=== PATIENT | female | born 1945 | race Caucasian/White ===

== ENCOUNTER 2018-10-21 14:39 | Inpatient (IN) | payer OTHER | END 2018-10-24 19:00 | disposition home or self-care (01) | LOC: TELE-WESTW 10-23 17:21 → ER 14:39 → TELE 20:24 | DX: R55 Syncope and collapse (principal); G93.40 Encephalopathy, unspecified; N39.0 Urinary tract infection, site not specified; I12.9 Hypertensive chronic kidney disease with stage 1 through stage 4 chronic kidney disease, or unspecified chronic kidney disease; E87.6 Hypokalemia; D64.9 Anemia, unspecified; N63.10 Unspecified lump in the right breast, unspecified quadrant; R41.82 Altered mental status, unspecified; F02.80 Dementia in other diseases classified elsewhere, unspecified severity, without behavioral disturbance, psychotic disturbance, mood disturbance, and anxiety; G30.9 Alzheimer's disease, unspecified; E78.5 Hyperlipidemia, unspecified ==

== ENCOUNTER 2018-11-12 12:49 | Emergency (ER) | payer OTHER ==
[~2018-11-12] VITALS: Ht 160 cm; Wt 81.6 kg
[~2018-11-12 12:49] MED LIST: LOSA100T33 PO; ROSU40TA PO
[2018-11-12 13:01] VITALS: BP 152/54
[2018-11-12 14:00] LABS: Basophils # (auto) 0.1 uL; Basophils % (auto) 0.9 % (0.0-2.0); Eosinophils # (auto) 0.1 uL; Eosinophils % (auto) 1.9 % (0.0-7.0); Hematocrit 31.8 % (36.0-46.0); Hemoglobin 10.5 g/dL (12.2-16.2); Lymphocytes # (auto) 1.6 uL; Lymphocytes % (auto) 20.4 % (10.0-50.0); Mean Corpuscular Hemoglobin 30.3 pg (28.0-32.0); Mean Corpuscular Hgb Conc. 33.1 g/dL (32.0-36.0); Mean Corpuscular Volume 91.5 fL (80.0-100.0); Monocytes # (auto) 0.6 uL; Monocytes % (auto) 8.4 % (0.0-12.0); Neutrophils # (auto) 5.3 uL; Neutrophils % (auto) 68.4 % (37.0-80.0); Platelet Count (auto) 284 10^3/uL (140-450); Red Blood Cells 3.47 10^6/uL (4.0-5.20); Red Cell Distribution Width 14.7 % (11.8-14.3); White Blood Cell 7.7 10^3/uL (4.4-10.8)
[2018-11-12 14:10] LABS: Chloride 107 mmol/L (98-107); Potassium 3.6 mmol/L (3.5-5.1); Sodium 141 mmol/L (136-145)
[2018-11-12 14:13] LABS: Albumin 3.6 g/dL (3.4-5.0); Anion Gap 6 (5-15); Calcium 9.2 mg/dL (8.5-10.1); Carbon Dioxide 28 mmol/L (21-32); Glucose 83 mg/dL (74-106); Magnesium 2.4 mg/dL (1.6-2.6)
[2018-11-12 14:19] LABS: Alanine Aminotransferase 24 U/L (13-56); Alkaline Phosphatase 83 U/L (45-117); Bilirubin, Total 0.3 mg/dL (0.2-1.0); GFR African American 46 mL/min; GFR Non-African American 38 mL/min
[2018-11-12 14:23] LABS: Aspartate Aminotransferase 23 U/L (15-37); BUN/Creatinine Ratio 15.4; Blood Urea Nitrogen 22 mg/dL (7-18)
== END 2018-11-12 15:27 | disposition left against medical advice (07) ==
LOC: ER 12:56
DX: G93.41 Metabolic encephalopathy (principal); F03.90 Unspecified dementia, unspecified severity, without behavioral disturbance, psychotic disturbance, mood disturbance, and anxiety; Z85.3 Personal history of malignant neoplasm of breast
CPT/HCPCS: 36415; 70450; 80053; 83735; 83880; 84484; 85025; 93005

== ENCOUNTER 2018-11-13 08:40 | Emergency (ER) | payer OTHER ==
[~2018-11-13] VITALS: Ht 160 cm; Wt 86.2 kg
[2018-11-13 09:05] LABS: Urine WBC None Seen /hpf (0 - 5)
[2018-11-13 09:12] LABS: Urine Bacteria NONE SEEN /hpf (None Seen); Urine Blood Negative /uL (Negative); Urine Specific Gravity 1.017 (1.001-1.035)
[2018-11-13 09:51] VITALS: BP 183/89
[2018-11-13] MEDS ORDERED: FUROSEMIDE 20 MG/2 ML VIAL IV ONE (13:30)
[2018-11-13] MEDS ORDERED: FUROSEMIDE 40 MG TAB PO ONE (13:45)
== END 2018-11-13 14:09 | disposition home or self-care (01) ==
LOC: ER 08:48
DX: F03.90 Unspecified dementia, unspecified severity, without behavioral disturbance, psychotic disturbance, mood disturbance, and anxiety (principal); Z90.49 Acquired absence of other specified parts of digestive tract
CPT/HCPCS: 73130; 73610; 73630; 81001

== ENCOUNTER 2018-11-14 07:12 | Emergency (ER) | payer OTHER ==
[~2018-11-14] VITALS: Ht 160 cm; Wt 86.2 kg
[2018-11-14 07:15] VITALS: BP 137/71
== END 2018-11-14 08:07 | disposition home or self-care (01) ==
LOC: ER 07:12
DX: S82.891A Other fracture of right lower leg, initial encounter for closed fracture (principal); W19.XXXA Unspecified fall, initial encounter; Y93.01 Activity, walking, marching and hiking; Y92.098 Other place in other non-institutional residence as the place of occurrence of the external cause; Y99.8 Other external cause status
CPT/HCPCS: 29515; 99283; L3260

== ENCOUNTER 2020-06-12 19:01 | Emergency (ER) | payer OTHER, MEDICAID ==
[~2020-06-12] VITALS: Ht 167.6 cm; Wt 100.2 kg
[~2020-06-12 19:01] MED LIST changes: +AML5T PO; -LOSA100T33 PO
[2020-06-12 20:15] LABS: Basophils # (auto) 0.1 10 ^3/uL (0-0.2); Basophils % (auto) 0.8 % (0.0-2.0); Eosinophils # (auto) 0.2 10 ^3/uL (0-0.8); Eosinophils % (auto) 3.2 % (0.0-7.0); Hematocrit 33.8 % (36.0-46.0); Hemoglobin 11.2 g/dL (12.2-16.2); Lymphocytes # (auto) 0.9 10 ^3/uL (0.4-5.4); Lymphocytes % (auto) 12.9 % (10.0-50.0); Mean Corpuscular Hemoglobin 30.3 pg (28.0-32.0); Mean Corpuscular Hgb Conc. 33.2 g/dL (32.0-36.0); Mean Corpuscular Volume 91.4 fL (80.0-100.0); Monocytes # (auto) 0.6 10 ^3/uL (0-1.3); Monocytes % (auto) 8.3 % (0.0-12.0); Neutrophils # (auto) 5.4 10 ^3/uL (1.6-8.6); Neutrophils % (auto) 74.8 % (37.0-80.0); Platelet Count (auto) 212 10^3/uL (140-450); Red Blood Cells 3.69 10^6/uL (4.0-5.20); Red Cell Distribution Width 15.3 % (11.8-14.3); White Blood Cell 7.2 10^3/uL (4.4-10.8)
[2020-06-12 20:39] LABS: INR 0.95 (0.9-1.15); Partial Thromboplastin Time 22.3 sec (23.0-31.2)
[2020-06-12 20:43] LABS: Albumin 3.2 g/dL (3.4-5.0); Calcium 9.1 mg/dL (8.5-10.1); Potassium 3.9 mmol/L (3.5-5.1)
[2020-06-12 20:47] LABS: BUN/Creatinine Ratio 15.6; Bilirubin, Total 0.2 mg/dL (0.2-1.0); Total Protein 7.5 g/dL (6.4-8.2)
[2020-06-12] MEDS ORDERED: SODIUM CHLORIDE 0.9% 1,000 ML IV ONE (21:45)
[2020-06-12 22:15] LABS: Amylase 63 U/L (25-115); Lipase 142 U/L (73-393); Magnesium 2.3 mg/dL (1.6-2.6)
[2020-06-13 04:12] LABS: Urine Bacteria FEW /hpf (None Seen); Urine Blood TRACE /uL (Negative); Urine Specific Gravity 1.013 (1.001-1.035); Urine WBC 1 /hpf (0 - 5)
[2020-06-13 04:38] VITALS: BP 144/83
== END 2020-06-13 05:22 | disposition home or self-care (01) ==
LOC: ER 19:04
DX: G30.9 Alzheimer's disease, unspecified (principal); F02.80 Dementia in other diseases classified elsewhere, unspecified severity, without behavioral disturbance, psychotic disturbance, mood disturbance, and anxiety; E86.0 Dehydration; E78.5 Hyperlipidemia, unspecified; I12.9 Hypertensive chronic kidney disease with stage 1 through stage 4 chronic kidney disease, or unspecified chronic kidney disease; N18.9 Chronic kidney disease, unspecified; Z20.828 Contact with and (suspected) exposure to other viral communicable diseases
CPT/HCPCS: 36415; 70450; 71045; 80053; 81001; 82150; 83605; 83690; 83735; 83880; 84443; 84484; 85025; 85379; 85610; 85730; 87426; 93005; 96360; 96361; 99285; C9803; J7030; U0003

== ENCOUNTER 2020-09-02 21:35 | Emergency (ER) | payer OTHER, MEDICAID ==
[~2020-09-02] VITALS: Ht 160 cm; Wt 98.0 kg
[2020-09-02] MEDS ORDERED: hydrALAZINE HCL 20 MG/ML VL IV ONE (22:15)
[2020-09-02] MEDS ORDERED: ASPirin 81 mg TAB PO ONE (23:00)
[2020-09-02 23:46] LABS: Basophils # (auto) 0 10 ^3/uL (0-0.2); Basophils % (auto) 0.6 % (0.0-2.0); Eosinophils # (auto) 0.1 10 ^3/uL (0-0.8); Eosinophils % (auto) 1.6 % (0.0-7.0); Hematocrit 30.2 % (36.0-46.0); Hemoglobin 10.1 g/dL (12.2-16.2); Lymphocytes # (auto) 0.8 10 ^3/uL (0.4-5.4); Lymphocytes % (auto) 9.4 % (10.0-50.0); Mean Corpuscular Hemoglobin 29.7 pg (28.0-32.0); Mean Corpuscular Hgb Conc. 33.4 g/dL (32.0-36.0); Monocytes % (auto) 12.3 % (0.0-12.0); Neutrophils # (auto) 6.4 10 ^3/uL (1.6-8.6); Neutrophils % (auto) 76.1 % (37.0-80.0); Nucleated Red Blood Cells % 0.1 %; Platelet Count (auto) 221 10^3/uL (140-450); Red Blood Cells 3.39 10^6/uL (4.0-5.20); Red Cell Distribution Width 15.2 % (11.8-14.3); White Blood Cell 8.4 10^3/uL (4.4-10.8)
[2020-09-02 23:55] LABS: Albumin 3.1 g/dL (3.4-5.0); Anion Gap 6 (5-15); Blood Urea Nitrogen 28 mg/dL (7-18); Calcium 9.1 mg/dL (8.5-10.1); Carbon Dioxide 26 mmol/L (21-32); Chloride 108 mmol/L (98-107); Glucose 103 mg/dL (74-106); Magnesium 2.1 mg/dL (1.6-2.6); Potassium 3.9 mmol/L (3.5-5.1); Sodium 140 mmol/L (136-145)
[2020-09-03 00:02] LABS: Alanine Aminotransferase 19 U/L (13-56); Alkaline Phosphatase 93 U/L (45-117); Aspartate Aminotransferase 20 U/L (15-37); BUN/Creatinine Ratio 22.2; Bilirubin, Total 0.3 mg/dL (0.2-1.0); GFR African American 53 mL/min; GFR Non-African American 44 mL/min; INR 0.99 (0.9-1.15); Partial Thromboplastin Time 27.7 sec (23.0-31.2); Total Protein 7.5 g/dL (6.4-8.2)
[2020-09-03] MEDS ORDERED: MORPHINE SULFATE 4 MG/ML SYR/VIAL IV ONE (00:45)
[2020-09-03 01:25] LABS: Urine Bacteria FEW /hpf (None Seen); Urine Blood TRACE /uL (Negative); Urine Mucus FEW (None Seen); Urine Specific Gravity 1.016 (1.001-1.035); Urine WBC 2 /hpf (0 - 5)
[2020-09-03 03:56] VITALS: BP 144/60
== END 2020-09-03 04:07 | disposition home or self-care (01) ==
LOC: ER 21:35
DX: R07.89 Other chest pain (principal); I12.9 Hypertensive chronic kidney disease with stage 1 through stage 4 chronic kidney disease, or unspecified chronic kidney disease; N18.9 Chronic kidney disease, unspecified; E78.5 Hyperlipidemia, unspecified
CPT/HCPCS: 36415; 71045; 80053; 81001; 83690; 83735; 83880; 84484; 85025; 85610; 85730; 93005; 96374; 99285; J2270

== ENCOUNTER 2020-10-17 10:06 | Inpatient (IN) | payer OTHER, MEDICAID ==
[~2020-10-17] VITALS: Ht 160 cm; Wt 86.1 kg
[2020-10-17] MEDS ORDERED: SODIUM CHLORIDE 0.9% 1,000 ML IV ONE (10:30)
[2020-10-17] MEDS ORDERED: ONDANSETRON HCL 4 MG/2 ML VIAL IV ONE (10:30)
[2020-10-17 11:14] LABS: Basophils # (auto) 0.1 10 ^3/uL (0-0.2); Basophils % (auto) 0.6 % (0.0-2.0); Eosinophils # (auto) 0.1 10 ^3/uL (0-0.8); Eosinophils % (auto) 0.5 % (0.0-7.0); Hematocrit 29.5 % (36.0-46.0); Hemoglobin 9.6 g/dL (12.2-16.2); Lymphocytes # (auto) 0.6 10 ^3/uL (0.4-5.4); Lymphocytes % (auto) 5.6 % (10.0-50.0); Mean Corpuscular Hgb Conc. 32.4 g/dL (32.0-36.0); Mean Corpuscular Volume 89.7 fL (80.0-100.0); Monocytes # (auto) 1.2 10 ^3/uL (0-1.3); Monocytes % (auto) 10.7 % (0.0-12.0); Neutrophils # (auto) 9.4 10 ^3/uL (1.6-8.6); Neutrophils % (auto) 82.6 % (37.0-80.0); Nucleated Red Blood Cells % 0.2 %; Platelet Count (auto) 139 10^3/uL (140-450); Red Blood Cells 3.29 10^6/uL (4.0-5.20); Red Cell Distribution Width 16.1 % (11.8-14.3); White Blood Cell 11.4 10^3/uL (4.4-10.8)
[2020-10-17] MEDS ORDERED: LORazepam 2MG/ML-1ML VIAL IV ONE (11:30)
[2020-10-17 11:39] LABS: Albumin 2.7 g/dL (3.4-5.0); Calcium 10.2 mg/dL (8.5-10.1); Potassium 3.9 mmol/L (3.5-5.1)
[2020-10-17 11:44] LABS: BUN/Creatinine Ratio 22.8; Bilirubin, Total 0.4 mg/dL (0.2-1.0)
[2020-10-17 12:00] LABS: INR 1.09 (0.9-1.15); Partial Thromboplastin Time 31.6 sec (23.0-31.2)
[2020-10-17] MEDS ORDERED: SOD CHL 0.45% 1,000 ML IV SCH (12:30)
[2020-10-17] MEDS ORDERED: MORPHINE SULF INJ 2 MG/ML SYRINGE 1ML IV PRN (12:30)
[2020-10-17] MEDS ORDERED: ACETAMINOPHEN 325 MG TAB PO PRN (12:30)
[2020-10-17] MEDS ORDERED: ALUM & MAG HYDROX-SIMETH LIQ(MAALOX) 30 ML PO PRN (12:30)
[2020-10-17] MEDS ORDERED: LACTULOSE 20Gm/30ML SOLN PO PRN (12:30)
[2020-10-17] MEDS ORDERED: DOCUSATE SOD 100 MG CAP PO PRN (12:30)
[2020-10-17] MEDS ORDERED: NITROGLYCERIN 0.4 MG SL TAB SL PRN (12:30)
[2020-10-17] MEDS ORDERED: HYDROcodone-ACET 5/325MG TAB PO PRN (12:30)
[2020-10-17] MEDS ORDERED: METOCLOPRAMIDE HCL 5MG/ml INJ 2ml VIAL IV PRN (12:30)
[2020-10-17] MEDS: cefTRIAXone 1GM/50ML D5W 50 ML IV SCH (13:22)
[2020-10-17 13:47] LABS: Alcohol, Urine < 3.0 mg/dL (0-10); Amphetamine Screen, Urine NEGATIVE (NEGATIVE); Barbiturate Scree,Urine NEGATIVE (NEGATIVE); Benzodiazephine Screen, Urine NEGATIVE (NEGATIVE); Cannabinoid Screen, Urine NEGATIVE (NEGATIVE); Cocaine Screen, Urine NEGATIVE (NEGATIVE); Opiate Scree,Urine POSITIVE (NEGATIVE); Phencyclidine Screen, Urine NEGATIVE (NEGATIVE)
[2020-10-17 13:49] LABS: Urine Bacteria FEW /hpf (None Seen); Urine Blood Negative /uL (Negative); Urine Hyaline Cast FEW /lpf (0 - 2); Urine Specific Gravity 1.017 (1.001-1.035); Urine WBC 1 /hpf (0 - 5)
[2020-10-17] MEDS: SODIUM BICARBONATE 50ML VIAL 50 ML in D5W 5% 1,000 ML IV SCH (16:09)
[2020-10-17] MEDS ORDERED: ROSU1TAB14 PO (16:38)
[2020-10-17] MEDS ORDERED: AMLO-496 PO (16:38)
[2020-10-17] MEDS ORDERED: MORP20SO17 PO ×2 (16:49→16:50)
[2020-10-17] MEDS ORDERED: TRAZ50TA2 PO (16:49)
[2020-10-17] MEDS ORDERED: LISI-646 PO (16:49)
[2020-10-17] MEDS ORDERED: DOCU-94 PO (16:49)
[2020-10-17 17:03] LABS: Creatinine, Urine 220 mg/dL (30.0-125.0); Protein, Urine 123.7 mg/dL (0.0-11.9); Sodium Urine 26 mmol/L (40-220)
[2020-10-17] MEDS: SUCRALFATE 1 GM/10 ML ORAL SUSP PO SCH ×2 (17:57→22:00)
[2020-10-17] MEDS ORDERED: MAGNESIUM CITRATE SOLUTION 300 ML BTL PO ONE (18:30)
[2020-10-17] MEDS: ATORVASTATIN 20 MG TAB PO SCH (22:00)
[2020-10-17] MEDS: PANTOPRAZOLE 40 MG/10 ML VIAL INJ IV SCH (22:41)
[2020-10-18] VITALS (8 sets, daily range): BP systolic 105–138; BP diastolic 51–70
[2020-10-18] MEDS: SODIUM BICARBONATE 50ML VIAL 50 ML in D5W 5% 1,000 ML IV SCH (01:55)
[2020-10-18] MEDS: SUCRALFATE 1 GM/10 ML ORAL SUSP PO SCH ×4 (06:29→21:27)
[2020-10-18] MEDS: cefTRIAXone 1GM/50ML D5W 50 ML IV SCH (09:00)
[2020-10-18 09:01] LABS: Basophils # (auto) 0 10 ^3/uL (0-0.2); Basophils % (auto) 0.5 % (0.0-2.0); Eosinophils # (auto) 0.1 10 ^3/uL (0-0.8); Eosinophils % (auto) 1.6 % (0.0-7.0); Hematocrit 29.5 % (36.0-46.0); Hemoglobin 9.8 g/dL (12.2-16.2); Lymphocytes # (auto) 0.7 10 ^3/uL (0.4-5.4); Lymphocytes % (auto) 8.2 % (10.0-50.0); Mean Corpuscular Hemoglobin 29.3 pg (28.0-32.0); Mean Corpuscular Hgb Conc. 33.2 g/dL (32.0-36.0); Mean Corpuscular Volume 88.1 fL (80.0-100.0); Monocytes # (auto) 1.3 10 ^3/uL (0-1.3); Monocytes % (auto) 14.3 % (0.0-12.0); Neutrophils # (auto) 6.7 10 ^3/uL (1.6-8.6); Neutrophils % (auto) 75.4 % (37.0-80.0); Nucleated Red Blood Cells % 0.3 %; Platelet Count (auto) 133 10^3/uL (140-450); Red Blood Cells 3.35 10^6/uL (4.0-5.20); Red Cell Distribution Width 15.7 % (11.8-14.3); White Blood Cell 8.9 10^3/uL (4.4-10.8)
[2020-10-18 09:06] LABS: Calcium 10.3 mg/dL (8.5-10.1); Potassium 4.4 mmol/L (3.5-5.1)
[2020-10-18 09:10] LABS: BUN/Creatinine Ratio 23.2; Phosphorus 4.3 mg/dL (2.5-4.90)
[2020-10-18] MEDS: PANTOPRAZOLE 40 MG/10 ML VIAL INJ IV SCH ×2 (09:40→21:46)
[2020-10-18] MEDS: ASPirin 81 mg TAB PO SCH (10:00)
[2020-10-18] MEDS ORDERED: ENOXAPARIN SOD 30 MG/0.3 ML SYRINGE SC SCH (10:00)
[2020-10-18] MEDS: SOD CHL 0.45% 1,000 ML IV SCH ×2 (10:15→21:46)
[2020-10-18] MEDS ORDERED: ENOXAPARIN SOD 60 MG/0.6 ML SYRINGE SC ONE (13:15)
[2020-10-18] MEDS: ATORVASTATIN 20 MG TAB PO SCH (21:27)
[2020-10-19 05:00] VITALS: BP 144/75
[2020-10-19] MEDS: SUCRALFATE 1 GM/10 ML ORAL SUSP PO SCH ×2 (06:04→09:47)
[2020-10-19] MEDS: SOD CHL 0.45% 1,000 ML IV SCH ×2 (06:04→09:48)
[2020-10-19 06:23] LABS: Potassium 3.9 mmol/L (3.5-5.1)
[2020-10-19 06:41] LABS: Albumin 2.5 g/dL (3.4-5.0); BUN/Creatinine Ratio 24.6; Bilirubin, Total 0.5 mg/dL (0.2-1.0); Calcium 10.3 mg/dL (8.5-10.1); Total Protein 7.7 g/dL (6.4-8.2)
[2020-10-19] MEDS: PANTOPRAZOLE 40 MG/10 ML VIAL INJ IV SCH (09:41)
[2020-10-19] MEDS: ENOXAPARIN SOD 100 MG/1 ML SYRINGE SC SCH ×2 (09:41→09:57)
[2020-10-19] MEDS: cefTRIAXone 1GM/50ML D5W 50 ML IV SCH (09:42)
[2020-10-19] MEDS: ASPirin 81 mg TAB PO SCH (09:47)
[2020-10-19] MEDS ORDERED: WARF2TAB49 PO (10:08)
[2020-10-19 10:41] VITALS: BP 155/86
== END 2020-10-19 12:05 | disposition hospice, home (50) | DRG 70 ==
LOC: ER 10:06 → TELE 10:07 → TELE-CENTR 10-18 03:15
PROVIDERS: ADMIT Hospitalist; ATTEND Hospitalist
DX: G93.41 Metabolic encephalopathy (principal); N17.0 Acute kidney failure with tubular necrosis; I82.401 Acute embolism and thrombosis of unspecified deep veins of right lower extremity; E44.1 Mild protein-calorie malnutrition; E87.0 Hyperosmolality and hypernatremia; E87.2 Acidosis; Z20.822 Contact with and (suspected) exposure to COVID-19; I12.9 Hypertensive chronic kidney disease with stage 1 through stage 4 chronic kidney disease, or unspecified chronic kidney disease; E86.0 Dehydration; R62.7 Adult failure to thrive; D63.1 Anemia in chronic kidney disease; F02.80 Dementia in other diseases classified elsewhere, unspecified severity, without behavioral disturbance, psychotic disturbance, mood disturbance, and anxiety; G30.9 Alzheimer's disease, unspecified; N18.32 Chronic kidney disease, stage 3b; K59.00 Constipation, unspecified; E66.9 Obesity, unspecified; R33.9 Retention of urine, unspecified; E78.5 Hyperlipidemia, unspecified; G89.29 Other chronic pain; M54.9 Dorsalgia, unspecified; R77.8 Other specified abnormalities of plasma proteins; Z68.33 Body mass index [BMI] 33.0-33.9, adult; Z80.3 Family history of malignant neoplasm of breast; Z82.49 Family history of ischemic heart disease and other diseases of the circulatory system; Z85.3 Personal history of malignant neoplasm of breast; Z87.440 Personal history of urinary (tract) infections; Z90.11 Acquired absence of right breast and nipple; Z90.49 Acquired absence of other specified parts of digestive tract
CPT/HCPCS: 36415; 51702; 71045; 74176; 76705; 76775; 80048; 80053; 80307; 81001; 82306; 82550; 82570; 83880; 83970; 84100; 84156; 84300; 84484; 84550; 85025; 85610; 85730; 87040; 87081; 87086; 87426; 93005; 93306; 93970; 96361; 96374; 96375; C9113; G0378; J0696; J1642; J2405